=== PATIENT | female | born 1990 | race Caucasian/White ===

== ENCOUNTER 2017-09-04 11:41 | Emergency (ER) | payer BC ==
[~2017-09-04] VITALS: Ht 160 cm; Wt 54.4 kg
[~2017-09-04 11:41] MED LIST: AMBIEN 5 MG TABL5 M1; AMBIEN 5 MG TABL5 MG PO; BACTRIM DS TAB1 EACH PO; EFFEXOR 5050 MG/1 T1; FAMVIR250 MG PO; FLAGYL500 MG PO; HYDROCODONE-AP1 EAC6 PO; HYDROCODONE-APA1 TA1 PO; IBUPROFEN 800800 M1 PO; IBUPROFEN 800800 MG PO; INVEGA6 MG; LAMICTAL100 MG; Magic Mouthwash TOP; NAPROSYN500 MG PO; NOHOMEMEDICATIONS; NORCO 5-325 TA1 EACH PO; ONDANSETRON HCL4 M2 PO; PHENERGAN 25 MG25 M1 PO; PREDNISONE 20 M20 MG PO; TESSALON PERLE100 MG PO; TRAMADOL 50 MG50 MG PO; VISTARIL 25 MG25 M1 PO; ZOLOFT25 MG; ZOVIRAX400 MG
[2017-09-04 12:00] LABS: URINE BILIRUBIN NEGATIVE (Negative); URINE BLOOD NEGATIVE (Negative); URINE CLARITY CLEAR; URINE COLOR YELLOW; URINE GLUCOSE-RANDOM NEGATIVE (Negative); URINE KETONES NEGATIVE (Negative); URINE LEUKOCYTES-REFLEX NEGATIVE (Negative); URINE NITRITE-REFLEX NEGATIVE (Negative); URINE PROTEIN NEGATIVE (Negative); URINE UROBILINOGEN 0.2 E.U./dl (0.2-1.0)
[2017-09-04 12:17] LABS: ABSOLUTE BASOPHILS 0.1 thou/uL (0.0-0.2); ABSOLUTE EOSINOPHILS 0.1 thou/uL (0.0-0.7); ABSOLUTE LYMPHOCYTES 1.8 thou/uL (0.8-5.3); ABSOLUTE MONOCYTES 0.9 thou/uL (0.0-1.2); ABSOLUTE NEUTROPHILS 9.7 thou/uL (1.6-8.1); BASOPHILS 0.7 %; HEMATOCRIT 38.6 % (37.0-47.0); HEMOGLOBIN 13.2 gm/dL (12.0-15.0); LYMPHOCYTES 14.5 %; MCH 31.5 pg (26.0-34.0); MCHC 34.3 g/dL (28.0-37.0); MCV 91.9 fL (80.0-100.0); MPV 7.8 fl. (7.2-11.1); NUCLEATED RBCS 0 /100WBC; PLATELET COUNT* 330 thou/uL (150-400); POLYS 76.8 %; RDW-CV 12.8 % (10.5-14.5); WBC 12.6 thou/uL (4.0-11.0)
[2017-09-04 12:30] LABS: CREATININE 0.6 mg/dL (0.6-1.3); POTASSIUM 3.4 mmol/L (3.5-5.1)
[2017-09-04 12:35] LABS: ALBUMIN 3.5 g/dL (3.4-5.0); TOTAL BILIRUBIN 0.7 mg/dL (<0.1-1.0); TOTAL PROTEIN 7.8 g/dL (6.4-8.2)
[2017-09-04] MEDS ORDERED: BENTYL 10 MG CA10 M1 PO (13:40)
[2017-09-04 14:00] VITALS: BP 103/65
== END 2017-09-04 14:01 | disposition home or self-care (01) ==
LOC: M.ERS 11:41
PROVIDERS: Nurse Practitioner Family
DX: R10.84 Generalized abdominal pain (principal); F17.210 Nicotine dependence, cigarettes, uncomplicated; Z86.14 Personal history of Methicillin resistant Staphylococcus aureus infection; Z88.0 Allergy status to penicillin

== ENCOUNTER 2018-10-19 19:14 | Emergency (ER) | payer OTHER, MEDICAID ==
[~2018-10-19] VITALS: Ht 162.6 cm; Wt 49.9 kg
[~2018-10-19 19:14] MED LIST changes: +BENTYL 10 MG CA10 M1 PO
[2018-10-19 19:53] LABS: ABSOLUTE BASOPHILS 0.1 thou/uL (0.0-0.2); ABSOLUTE EOSINOPHILS 0.2 thou/uL (0.0-0.7); ABSOLUTE LYMPHOCYTES 2.5 thou/uL (0.8-5.3); ABSOLUTE MONOCYTES 0.6 thou/uL (0.0-1.2); ABSOLUTE NEUTROPHILS 4.3 thou/uL (1.6-8.1); BASOPHILS 0.7 %; EOSINOPHILS 2.4 %; HEMATOCRIT 40.5 % (37.0-47.0); HEMOGLOBIN 13.8 gm/dL (12.0-15.0); LYMPHOCYTES 32.9 %; MCH 30.8 pg (26.0-34.0); MCHC 34.2 g/dL (28.0-37.0); MCV 90.1 fL (80.0-100.0); MONOCYTES 8.3 %; NUCLEATED RBCS 0 /100WBC; PLATELET COUNT* 282 thou/uL (150-400); POLYS 55.7 %; RDW-CV 13.8 % (10.5-14.5); WBC 7.7 thou/uL (4.0-11.0)
[2018-10-19 20:01] LABS: ANION GAP 7 mmol/L (7-16); BUN 12 mg/dL (7-18); CALCIUM 9.3 mg/dL (8.5-10.1); CHLORIDE 102 mmol/L (98-107); CO2 27 mmol/L (21-32); CREATININE 0.7 mg/dL (0.6-1.3); GLUCOSE 97 mg/dL (70-99); POTASSIUM 3.7 mmol/L (3.5-5.1); SODIUM 136 mmol/L (136-145)
[2018-10-19 20:04] LABS: PROTIME 9.8 Seconds (9.20-11.50)
[2018-10-19 20:16] LABS: ALBUMIN 4.2 g/dL (3.4-5.0); ALKALINE PHOSPHATASE 49 U/L (46-116); CK-MB MASS 0.9 ng/mL (<0.5-3.6); LIPASE 101 U/L (73-393); MAGNESIUM 2.1 mg/dL (1.8-2.4); NT-PRO BRAIN NAT PEPTIDE 5 pg/mL (<300); SGOT 29 U/L (15-37); SGPT 74 U/L (30-65); TOTAL BILIRUBIN 0.3 mg/dL (<0.1-1.0); TOTAL PROTEIN 7.9 g/dL (6.4-8.2); TROPONIN-I LEVEL <0.06 ng/mL (<0.06)
[2018-10-19 20:48] VITALS: BP 109/70
--- NOTE | 2018-10-20 09:21 | EKG ---
[place] [address] ELECTROCARDIOGRAM REPORT Name: ARY WARD Room: [facility]#: [id number] Admission: 10/19/18 Attend Phys: Discharge: 10/19/18 Date of : 89 Report #: [id number] THIS REPORT FOR: //name// [facility] ED Test Date: 2018-10-19 Test Time: 19:21:36 Pat Name: ARY WARD Department: Room: Gender: F Senior Technical Support Analyst: Becka RODRIGUEZ : 1990 Requested By: Richard Quiroz Order Number: [id number] MD: Akbar Collier Measurements Intervals [place] Rate: 109 P: 78 MI: 156 QRS: 76 QRSD: 139 T: 45 QT: 333 QTc: 449 Interpretive Statements Sinus tachycardia Nonspecific intraventricular conduction delay No previous ECG available for comparison Electronically Signed On 10-20-2018 9:21:21 OVER SHORT AND DAMAGE CLERK by Akbar Collier [email or web address] <ELECTRONICALLY SIGNED> By: Akbar Collier MD, [facility] 10/20/18 0921 20 20 Akbar Collier MD, FACC /EPI
== END 2018-10-19 20:48 | disposition home or self-care (01) ==
LOC: M.ERS 19:14
PROVIDERS: Family Medicine
DX: R07.89 Other chest pain (principal); F17.210 Nicotine dependence, cigarettes, uncomplicated; Z88.0 Allergy status to penicillin